=== PATIENT | male | born 1995 | race Caucasian/White ===

== ENCOUNTER 2022-03-24 23:49 | Emergency (ER) | payer BC ==
[~2022-03-24] VITALS: Ht 182.9 cm; Wt 115.7 kg
[2022-03-25 00:23] VITALS: BP_SYST 144
[2022-03-25] MEDS ORDERED: OFLO5DRO6 LEFT EYE (01:55)
[2022-03-25] MEDS ORDERED: IBUP-1969 PO (01:55)
[2022-03-25] MEDS ORDERED: HYDR-3917 PO (01:55)
[2022-03-25] MEDS ORDERED: IBUPROFEN 600 MG TABLET PO ONE (02:00)
[2022-03-25 02:24] VITALS: BP_SYST 154
== END 2022-03-25 02:24 | disposition home or self-care (01) ==
LOC: SED 23:49
DX: S05.02XA Injury of conjunctiva and corneal abrasion without foreign body, left eye, initial encounter (principal); Z79.899 Other long term (current) drug therapy; X58.XXXA Exposure to other specified factors, initial encounter; Y93.89 Activity, other specified; Y92.89 Other specified places as the place of occurrence of the external cause; Y99.8 Other external cause status
CPT/HCPCS: 99283

== ENCOUNTER 2024-05-12 17:22 | Emergency (ER) | payer BC ==
[~2024-05-12] VITALS: Ht 182.9 cm; Wt 122.5 kg
[~2024-05-12 17:22] MED LIST: HYDR-3917 PO; IBUP-1969 PO; OFLO5DRO6 LEFT EYE
[2024-05-12 17:40] VITALS: BP_SYST 135; PULSE 111; RESP 18; TEMP 98.9; O2SAT 95
[2024-05-12 18:49] LABS: BASOPHILS % (AUTO) 0.1 % (0.0-2.0); EOSINOPHILS % (AUTO) 0.3 % (0.0-4.0); HEMATOCRIT 44.7 % (36-54); HEMOGLOBIN 15.4 g/dL (14.0-18.0); LYMPHOCYTES # (AUTO) 1.6 K/uL (1.0-5.5); LYMPHOCYTES % (AUTO) 11.6 % (20.5-51.5); MEAN CORPUSCULAR HEMOGLOBIN 30 pg (27-31); MEAN CORPUSCULAR HGB CONC 35 % (32-36); MEAN CORPUSCULAR VOLUME 87 fL (79.0-98.0); MONOCYTES # (AUTO) 1.2 K/uL (0.0-1.0); MONOCYTES % (AUTO) 8.6 % (1.7-9.3); NEUTROPHILS # (AUTO) 10.8 K/uL (1.8-7.7); NEUTROPHILS % (AUTO) 79.4 % (40.0-70.0); PLATELET COUNT (AUTO) 269 K/uL (130-430); RED BLOOD CELL COUNT(AUTO) 5.15 MIL/uL (4.2-6.2); RED CELL DISTRIBUTION WIDTH 13.5 % (9.0-15.0); WHITE BLOOD COUNT (AUTO) 13.6 K/uL (4.8-10.8)
[2024-05-12 19:11] LABS: ANION GAP 8 (5-15); CALCIUM 9.9 mg/dL (8.4-11.0); CARBON DIOXIDE 28 mmol/L (23-29); CHLORIDE 102 mmol/L (98-107); CREATININE 1.12 mg/dL (0.55-1.30); GFR AFRICAN AMERICAN 99 mL/min (>90); GLUCOSE 104 mg/dL (74-106); SODIUM SERUM 138 mmol/L (136-145); UREA NITROGEN, BLOOD 11 mg/dL (8-21)
[2024-05-12 19:13] LABS: GFR NON AFRICAN-AMERICAN 82 mL/min (>90)
[2024-05-12] MEDS: LORazepam 1 MG TABLET PO ONE (19:37)
[2024-05-12 19:52] VITALS: BP_SYST 135; PULSE 111; RESP 18; TEMP 98.9; O2SAT 95
== END 2024-05-12 19:51 | disposition home or self-care (01) ==
LOC: SED 17:22
DX: F41.0 Panic disorder [episodic paroxysmal anxiety] (principal); R06.02 Shortness of breath; R06.4 Hyperventilation; Z79.899 Other long term (current) drug therapy; Z79.2 Long term (current) use of antibiotics
CPT/HCPCS: 36415; 71045; 80048; 83880; 84484; 85025; 85379; 93005; 99285